=== PATIENT | male | born 1965 | race Caucasian/White ===

== ENCOUNTER 2020-03-11 15:36 | Emergency (ER) | payer BC ==
[~2020-03-11 15:36] MED LIST: Nitroglycerin 0.4 MG Tab.SL SL PRN; Sodium Chloride 0.9% 10 ML Syringe FLUSH PRN
[2020-03-11] MEDS ORDERED: Aspirin 81 MG Tab.Chew PO ONE (15:38)
[2020-03-11 16:08] LABS: ANION GAP 10.8 mEq/L (7-13); CHLORIDE,CL 105 mmol/L (98-107); SODIUM,NA 142 mmol/L (136-145)
--- NOTE | 2020-03-11 16:38 | EDM.PDOC ---
Scribed by Dana Mixon 03/11/20 1545 for Cortes Rogel MD <Cortes Rogel - Last Filed: 03/11/20 19:07> ED HPI GENERAL MEDICAL PROBLEM - General Chief Complaint: Chest Pain Stated Complaint: AMBULANCE Time Seen by Provider: 03/11/20 15:35 Source of Information: Reports: Patient, Old Records, Provider (Dr. Holloway), RN, RN Notes Reviewed History Limitations: Reports: No Limitations - History of Present Illness INITIAL COMMENTS - FREE TEXT/NARRATIVE: Patient arrives to ER sent by Dr. Holloway from [facility] by wheelchair with c/ o sudden onset of chest pain at 1330HRS while sitting in his truck waiting for road construction. Pt reports and aching pressure from the epigastric region up through the substernal chest and into the left upper chest. Denies pain radiating to the neck, throat, or arms. He reports feeling well when he woke this morning. He denies shortness of breath, nausea, vomiting, palpitations, edema, orthopnea, cough, fever, chills, or abdominal pain. Pt has known Hx of CAD with stents to the LAD, last angiography was in 2016. Dr. Holloway is familiar with the pt. Pt took Aspirin 81mg today. He has not taken any Nitroglycerin. Onset: Today, Sudden Onset Date: 03/11/20 Onset Time: 13:30 Duration: Constant Location: Reports: Chest Quality: Reports: Ache, Pressure Severity: Moderate Improves with: Reports: None Worsens with: Reports: None Associated Symptoms: Reports: No Other Symptoms Treatments TRAUMA DOCTOR: Reports: Aspirin sternal Pain Score (Numeric/FACES): 1 - Related Data Allergies Allergy/AdvReac Type Severity Reaction Status Date / Time cephalexin [Cephalexin] Allergy Cannot Verified 03/11/20 15:49 Remember erythromycin base Allergy Cannot Verified 03/11/20 15:49 [Erythromycin Base] Remember penicillin V Allergy Difficulty Verified 03/11/20 15:49 Breathing Home Meds: Home Meds Gabapentin 300 mg PO DAILY 02/25/14 [History] Lipitor 40 mg PO DAILY 02/25/14 [History] Metoprolol 12.5 mg PO BID 02/25/14 [History] Plavix 75 mg PO DAILY 02/25/14 [History] Aspirin [Adult Low Dose Aspirin EC] 81 mg PO DAILY 06/19/14 [History] Isosorbide Mononitrate [Isosorbide Mononitrate ER] 60 mg PO DAILY 06/19/14 [ History] Nitroglycerin [Nitrostat] 0.4 mg SL ASDIRECTED PRN 06/19/14 [History] Psyllium Husk/Aspartame [Metamucil Sugar Free] 1 packet PO BID 06/19/14 [History ] Ergocalciferol (Vitamin D2) [Vitamin D2] 1 tab PO DAILY 03/11/20 [History] Pravastatin Sodium [Pravastatin (Pravachol)] 40 mg PO DAILY 03/11/20 [History] Zinc 50 mg PO DAILY 03/11/20 [History] allopurinoL [Zyloprim] 100 mg PO DAILY 03/11/20 [History] Past Medical History HEENT History: Reports: Impaired Vision (wears glasses) Cardiovascular History: Reports: Angina, CAD, High Cholesterol, Hypertension, Stents Endocrine/Metabolic History: Reports: Obesity/BMI 30+ Social & Family History - Family History Family Medical History: Noncontributory - Living Situation & Occupation Living situation: Reports: Occupation: Employed ED ROS GENERAL - Review of Systems Review Of Systems: Comprehensive ROS is negative, except as noted in HPI. ED EXAM, GENERAL - Physical Exam Exam: See Below Exam Limited By: No Limitations General Appearance: Alert, WD/WN, No Apparent Distress, Obese Eye Exam: Bilateral Eye: Normal Inspection Nose: Normal Inspection, Normal Mucosa, No Blood Throat/Mouth: Normal Inspection, Normal Lips, Normal Voice, No Airway Compromise Head: Atraumatic, Normocephalic Neck: Normal Inspection Respiratory/Chest: No Respiratory Distress, Lungs Clear, Normal Breath Sounds, No Accessory Muscle Use, Chest Non-Tender Cardiovascular: Regular Rate, Rhythm, No Edema, No JVD, No Murmur GI/Abdominal: Normal Bowel Sounds, Soft, Non-Tender, No Distention, Other ( Benign obese abdomen) (Male) Exam: Deferred Rectal (Males) Exam: Deferred Back Exam: Normal Inspection Extremities: Normal Inspection, Normal Range of Motion, Non-Tender, Normal Capillary Refill, No Pedal Edema Neurological: Alert, Oriented, CN II-XII Intact, Normal Cognition, Normal Gait, No Motor/Sensory Deficits Psychiatric: Normal Affect, Normal Mood Skin Exam: Warm, Dry, Intact, Normal Color, No Rash EKG INTERPRETATION EKG Date: 03/11/20 Time: 15:38 Rhythm: Other (sinus rhythm) [place]: Normal P-Wave: Present QRS: Other (RSR in V1 and incomplete right bundle branch block) ST-T: Normal QT: Normal Course - Vital Signs Last Recorded V/S: Last Vital Signs Temp 98.6 F 03/11/20 21:00 Pulse 80 03/11/20 21:00 Resp 16 03/11/20 21:00 BP 116/67 03/11/20 21:00 Pulse Ox 96 03/11/20 21:00 - Orders/Labs/Meds Orders: Active Orders 24 hr Category Date Time Status EKG 12 Lead [EKG Documentation Completion] [RC] STAT Care 03/11/20 15:32 Active EKG Documentation Completion [RC] ROUTINE Care 03/11/20 20:00 Active Peripheral IV Care [RC] . DIRECTED Care 03/11/20 15:32 Active Nitroglycerin [Nitrostat] Med 03/11/20 15:32 Active 0.4 mg SL Q5M PRN Sodium Chloride 0.9% [Saline Flush] Med 03/11/20 15:32 Active 10 ml FLUSH ASDIRECTED PRN Peripheral IV Insertion Adult [OM.PC] Stat Oth 03/11/20 15:31 Ordered Medication Orders Nitroglycerin (Nitrostat) 0.4 mg SL Q5M PRN PRN Reason: Chest Pain Sodium Chloride (Saline Flush) 10 ml FLUSH ASDIRECTED PRN PRN Reason: Keep Vein Open Last Admin: 03/11/20 15:41 Dose: 10 ml Labs: Laboratory Tests 03/11/20 03/11/20 03/11/20 Range/Units 15:40 15:40 15:40 WBC 7.8 (5.0-10.0) 10^3/uL RBC 4.59 L (4.6-6.2) 10^6/uL Hgb 14.5 (14.0-18.0) g/dL Hct 43.0 (40.0-54.0) % MCV 93.7 (80-100) fL MCH 31.6 (27.0-34.0) pg MCHC 33.7 (33.0-35.0) g/dL Plt Count 231 (150-450) 10^3/uL Neut % (Auto) 50.1 (42.2-75.2) % Lymph % (Auto) 30.9 (20.5-50.1) % [place] % (Auto) 15.4 H (2-8) % Eos % (Auto) 3.0 (1.0-3.0) % Baso % (Auto) 0.6 (0.0-1.0) % Add Manual Diff Yes Neutrophils % (Manual) 47 (42-75) % Band Neutrophils % 2 % Lymphocytes % (Manual) 37 (20-50) % Monocytes % (Manual) 9 H (2-8) % Eosinophils % (Manual) 3 (1-3) % Myelocytes % 2 PT 9.9 (9.0-12.0) SEC INR 1.0 (0.9-1.2) APTT 25.0 (22.0-34.0) SEC D-Dimer, Quantitative (0-400) ng/mL Sodium 142 (136-145) mmol/L Potassium 3.8 (3.5-5.1) mmol/L Chloride 105 (98-107) mmol/L Carbon Dioxide 30 (21-32) mmol/L Anion Gap 10.8 (7-13) mEq/L BUN 8 (7-18) mg/dL Creatinine 1.05 (0.70-1.30) mg/dL Est Cr Clr Drug Dosing 84.66 mL/min Estimated GFR (MDRD) > 60 BUN/Creatinine Ratio 7.6 (No establ ref range) Glucose 89 (74-99) mg/dL Calcium 8.3 L (8.5-10.1) mg/dL Total Bilirubin 0.4 (0.2-1.0) mg/dL AST 28 (15-37) U/L ALT 38 (16-63) U/L Alkaline Phosphatase 63 (46-116) U/L Troponin I < 0.017 (0.000-0.056) ng/mL Total Protein 6.8 (6.4-8.2) g/dL Albumin 3.3 L (3.4-5.0) g/dL Globulin 3.5 Albumin/Globulin Ratio 0.94 Lipase 112 (73-393) U/L 03/11/20 03/11/20 Range/Units 15:40 20:38 WBC (5.0-10.0) 10^3/uL RBC (4.6-6.2) 10^6/uL Hgb (14.0-18.0) g/dL Hct (40.0-54.0) % MCV (80-100) fL MCH (27.0-34.0) pg MCHC (33.0-35.0) g/dL Plt Count (150-450) 10^3/uL Neut % (Auto) (42.2-75.2) % Lymph % (Auto) (20.5-50.1) % [place] % (Auto) (2-8) % Eos % (Auto) (1.0-3.0) % Baso % (Auto) (0.0-1.0) % Add Manual Diff Neutrophils % (Manual) (42-75) % Band Neutrophils % % Lymphocytes % (Manual) (20-50) % Monocytes % (Manual) (2-8) % Eosinophils % (Manual) (1-3) % Myelocytes % PT (9.0-12.0) SEC INR (0.9-1.2) APTT (22.0-34.0) SEC D-Dimer, Quantitative 107 (0-400) ng/mL Sodium (136-145) mmol/L Potassium (3.5-5.1) mmol/L Chloride (98-107) mmol/L Carbon Dioxide (21-32) mmol/L Anion Gap (7-13) mEq/L BUN (7-18) mg/dL Creatinine (0.70-1.30) mg/dL Est Cr Clr Drug Dosing mL/min Estimated GFR (MDRD) BUN/Creatinine Ratio (No establ ref range) Glucose (74-99) mg/dL Calcium (8.5-10.1) mg/dL Total Bilirubin (0.2-1.0) mg/dL AST (15-37) U/L ALT (16-63) U/L Alkaline Phosphatase (46-116) U/L Troponin I < 0.017 (0.000-0.056) ng/mL Total Protein (6.4-8.2) g/dL Albumin (3.4-5.0) g/dL Globulin Albumin/Globulin Ratio Lipase (73-393) U/L Meds: Medications Generic Name Dose Route Start Last Admin Trade Name Freq PRN Reason Stop Dose Admin Nitroglycerin 0.4 mg 03/11/20 15:32 Nitrostat SL Q5M PRN Chest Pain Sodium Chloride 10 ml 03/11/20 15:32 03/11/20 15:41 Saline Flush FLUSH 10 ml ASDIRECTED PRN Administration Keep Vein Open Discontinued Medications Generic Name Dose Route Start Last Admin Trade Name Riveraq PRN Reason Stop Dose Admin Aspirin 243 mg 03/11/20 15:38 03/11/20 15:51 Aspirin PO 03/11/20 15:39 243 mg ONETIME ONE Administration - Radiology Interpretation Free Text/Narrative:: Chest x-ray: No acute new cardiopulmonary abnormality. See rad report. - Re-Assessments/Exams Free Text/Narrative Re-Assessment/Exam: 03/11/20 16:19 Initial EKG and Troponin negative for cardiac ischemia. Pt will be held as extended ER for a repeat EKG and Troponin at 2000HRS to satisfy an adequate CP rule out as advised by Dr. Holloway. 03/11/20 19:00 Care of pt transferred to [facility] at 1900HR shift change. Departure - Departure Disposition: Home, Self-Care 01 Clinical Impression: Atypical chest pain Instructions: Nonspecific Chest Pain, Adult, [id number] Forms: ED Department Discharge Additional Instructions: follow up with brick washer in am bland diet, low acid urgent follow up if recurrent chest pain with dizziness or shortness of breath Sepsis Event Note - Focused Exam Vital Signs: Vital Signs Temp Pulse Resp BP Pulse Ox 03/11/20 21:00 98.6 F 80 16 116/67 96 03/11/20 20:00 98.6 F 82 16 97/56 L 96 03/11/20 19:00 79 14 103/51 L 95 03/11/20 18:00 98 F 80 16 97/57 L 95 03/11/20 15:43 98.0 F 76 18 133/72 99 Date Exam was Performed: 03/11/20 Time Exam was Performed: 19:07 <[facility] Lee - Last Filed: 03/12/20 02:46> Course - Re-Assessments/Exams Free Text/Narrative Re-Assessment/Exam: No c/o of further episodes of pain. NSR on monitor. Repeat EKG unchanged. Repeat troponin negative. Departure - Departure Time of Disposition: 22:19 Condition: Good Sepsis Event Note - Focused Exam Date Exam was Performed: 03/11/20 Time Exam was Performed: 22:19 I have read and agree with the documentation that has been completed regarding this visit. By signing this record, I attest that the documentation was completed in my physical presence and is an accurate record of the encounter.
--- NOTE | 2020-03-11 16:41 | CR ---
EXAMINATION: Chest 1V Frontal SEX: Male AGE: 54 years CLINICAL HISTORY: 54-year-old morbidly obese male with CHEST PAIN. INTERPRETATION: 1. Reasonable inspiratory effort upright AP portable chest. External manager business information leads. 2. Normal cardiac silhouette for size and inspiration. No new signs of heart failure when compared to 03 May 2019 exam. 3. No new lung mass, hilar lymphadenopathy or focal lobar pneumonia. 4. No atelectasis/collapse. 5. No pneumothorax or pneumomediastinum. Midline tracheal bronchial airway unremarkable. CONCLUSION: No acute new cardiopulmonary abnormality.
== END 2020-03-11 22:45 | disposition home or self-care (01) ==
LOC: DL.ED 15:36
DX: R07.89 Other chest pain (principal); I10 Essential (primary) hypertension; I25.10 Atherosclerotic heart disease of native coronary artery without angina pectoris; E78.00 Pure hypercholesterolemia, unspecified; E66.9 Obesity, unspecified; Z68.42 Body mass index [BMI] 45.0-49.9, adult; I45.10 Unspecified right bundle-branch block; Z88.1 Allergy status to other antibiotic agents; Z88.0 Allergy status to penicillin; Z79.899 Other long term (current) drug therapy; Z79.82 Long term (current) use of aspirin; Z79.02 Long term (current) use of antithrombotics/antiplatelets; Z95.5 Presence of coronary angioplasty implant and graft
CPT/HCPCS: 36415; 71045; 80053; 83690; 84484; 85025; 85379; 85610; 85730; 93005; 99285-25; A9270-GY

== ENCOUNTER 2022-09-09 13:58 | Emergency (ER) | payer BC ==
[~2022-09-09 13:58] MED LIST changes: -Nitroglycerin 0.4 MG Tab.SL SL PRN
[2022-09-09 14:33] LABS: ANION GAP 8.8 mEq/L (7-13); CHLORIDE,CL 104 mmol/L (98-107); ESTIMATED GFR 80 mL/min (>=60); SODIUM,NA 139 mmol/L (136-145)
== END 2022-09-09 15:47 | disposition home or self-care (01) ==
LOC: DL.ED 13:58
DX: J18.9 Pneumonia, unspecified organism (principal); I25.119 Atherosclerotic heart disease of native coronary artery with unspecified angina pectoris; E78.00 Pure hypercholesterolemia, unspecified; I10 Essential (primary) hypertension; E66.9 Obesity, unspecified; Z68.41 Body mass index [BMI] 40.0-44.9, adult; Z88.1 Allergy status to other antibiotic agents; Z88.0 Allergy status to penicillin; Z86.16 Personal history of COVID-19
CPT/HCPCS: 36415; 71045; 80053; 82150; 83605; 83690; 83735; 83880; 84145; 84443; 84484; 85025; 85610; 86140; 93005; 99285; J3490

== ENCOUNTER 2023-10-01 05:58 | Day surgery (SDC) | payer BC ==
[2023-10-01] MEDS ORDERED: Midazolam 1 MG/ML 2 ML SDV ONE (06:18)
[2023-10-01] MEDS ORDERED: Midazolam 1 MG/ML 2 ML SDV IV ONE ×8 (06:18→07:02)
[2023-10-01] MEDS ORDERED: fentaNYL 100 MCG/2 ML SDV IV ONE ×3 (06:18→06:55)
[2023-10-01] MEDS ORDERED: fentaNYL 100 MCG/2 ML SDV ONE (06:18)
[2023-10-01] MEDS ORDERED: Dextrose 5% in Water 1,000 ML IV SCH (06:36)
== END 2023-10-01 08:44 | disposition home or self-care (01) ==
LOC: DL.ENDO 05:58
PROVIDERS: ATTEND Internal Medicine Gastroenterology
DX: Z12.11 Encounter for screening for malignant neoplasm of colon (principal); K57.30 Diverticulosis of large intestine without perforation or abscess without bleeding; I25.10 Atherosclerotic heart disease of native coronary artery without angina pectoris; E66.9 Obesity, unspecified; Z68.41 Body mass index [BMI] 40.0-44.9, adult; Z86.16 Personal history of COVID-19; Z88.0 Allergy status to penicillin; Z88.5 Allergy status to narcotic agent; Z88.1 Allergy status to other antibiotic agents
CPT/HCPCS: J2250; J3010; J7060